=== PATIENT | male | born 1990 | race Caucasian/White ===

== ENCOUNTER 2020-10-05 13:34 | Emergency (ER) | payer OTHER ==
[2020-10-05 15:47] LABS: HEMOGLOBIN 15.9 gm/dl (14.0-17.5); RED BLOOD COUNT 5.22 M/UL (4.20-5.50); WHITE BLOOD COUNT 10.5 K/UL (4.5-11.0)
[2020-10-05 16:07] LABS: BUN/CREATININE RATIO 11 (0-10)
[2020-10-05] MEDS ORDERED: NORFLEX 100 MG100 MG PO (16:50)
[2020-10-05] MEDS ORDERED: IBUPROFEN600 MG PO (16:50)
[2020-10-05] MEDS ORDERED: MEDROL DOSEPAK 24 MG PO (16:50)
== END 2020-10-05 17:05 | disposition home or self-care (01) ==
LOC: ER1 13:34
PROVIDERS: Physician Assistant Medical
DX: S29.011A Strain of muscle and tendon of front wall of thorax, initial encounter (principal); F17.210 Nicotine dependence, cigarettes, uncomplicated; Z86.19 Personal history of other infectious and parasitic diseases; X58.XXXA Exposure to other specified factors, initial encounter; Y92.89 Other specified places as the place of occurrence of the external cause; Y99.0 Civilian activity done for income or pay
CPT/HCPCS: 71111; 80053; 83690; 85025; 96372; 99285; J1885

== ENCOUNTER 2020-11-16 19:22 | Emergency (ER) | payer OTHER ==
[~2020-11-16 19:22] MED LIST: IBUPROFEN600 MG PO; MEDROL DOSEPAK 24 MG PO; NORFLEX 100 MG100 MG PO
[2020-11-16 20:10] LABS: HEMOGLOBIN 14.7 gm/dl (14.0-17.5); RED BLOOD COUNT 4.99 M/UL (4.20-5.50); WHITE BLOOD COUNT 10.4 K/UL (4.5-11.0)
[2020-11-16 20:27] LABS: BUN/CREATININE RATIO 13 (0-10)
[2020-11-16] MEDS ORDERED: CYCLOBENZAPRINE10 MG PO (21:16)
== END 2020-11-16 23:02 | disposition home or self-care (01) ==
LOC: ER1 19:22
PROVIDERS: Physician Assistant
DX: S00.03XA Contusion of scalp, initial encounter (principal); S20.211A Contusion of right front wall of thorax, initial encounter; F17.210 Nicotine dependence, cigarettes, uncomplicated; V86.59XA Driver of other special all-terrain or other off-road motor vehicle injured in nontraffic accident, initial encounter; Y92.410 Unspecified street and highway as the place of occurrence of the external cause
CPT/HCPCS: 70450; 71260; 72125; 80053; 81001; 83690; 85025; 99284; Q9967

== ENCOUNTER 2021-04-09 11:02 | Emergency (ER) | payer OTHER ==
[~2021-04-09 11:02] MED LIST changes: +CYCLOBENZAPRINE10 MG PO
[2021-04-09] MEDS ORDERED: PROAIR HFA8.5 GM INH (14:27)
[2021-04-09] MEDS ORDERED: TESSALON PERLE100 MG PO (14:27)
== END 2021-04-09 14:39 | disposition home or self-care (01) ==
LOC: ER1 11:02
DX: U07.1 COVID-19 (principal); J40 Bronchitis, not specified as acute or chronic; F17.200 Nicotine dependence, unspecified, uncomplicated; Z86.19 Personal history of other infectious and parasitic diseases; G40.909 Epilepsy, unspecified, not intractable, without status epilepticus
CPT/HCPCS: 71045; 99285; U0002

== ENCOUNTER 2021-04-22 20:10 | Emergency (ER) | payer OTHER ==
[~2021-04-22 20:10] MED LIST changes: +PROAIR HFA8.5 GM INH; +TESSALON PERLE100 MG PO
[2021-04-22] MEDS ORDERED: IBUPROFEN800 MG PO (21:50)
== END 2021-04-22 21:59 | disposition home or self-care (01) ==
LOC: ER1 20:10
DX: S39.012A Strain of muscle, fascia and tendon of lower back, initial encounter (principal); R56.9 Unspecified convulsions; Z86.19 Personal history of other infectious and parasitic diseases; V49.40XA Driver injured in collision with unspecified motor vehicles in traffic accident, initial encounter; Y92.410 Unspecified street and highway as the place of occurrence of the external cause
CPT/HCPCS: 70450; 71045; 72125; 72128; 72131; 99284

== ENCOUNTER 2021-05-04 22:36 | Emergency (ER) | payer OTHER ==
[~2021-05-04 22:36] MED LIST changes: +IBUPROFEN800 MG PO
[2021-05-05 02:06] LABS: HEMOGLOBIN 14.1 gm/dl (14.0-17.5); RED BLOOD COUNT 5.03 M/UL (4.20-5.50); WHITE BLOOD COUNT 12.4 K/UL (4.5-11.0)
[2021-05-05 02:25] LABS: BUN/CREATININE RATIO 13 (0-10)
== END 2021-05-05 03:33 ==
LOC: ER1 22:36
PROVIDERS: Emergency Medicine
DX: S02.32XA Fracture of orbital floor, left side, initial encounter for closed fracture (principal); S02.842A Fracture of lateral orbital wall, left side, initial encounter for closed fracture; S05.12XA Contusion of eyeball and orbital tissues, left eye, initial encounter; F91.1 Conduct disorder, childhood-onset type; F19.10 Other psychoactive substance abuse, uncomplicated; Z23 Encounter for immunization; Y04.2XXA Assault by strike against or bumped into by another person, initial encounter
CPT/HCPCS: 70450; 70486; 71045; 80053; 80307; 81001; 83690; 83735; 85025; 90471; 90715; 96374; 96375; 99285; G0480; J0690; J2405; J7030

== ENCOUNTER 2021-12-26 08:58 | Emergency (ER) | payer OTHER ==
[2021-12-26] MEDS ORDERED: KEPPRA1000 MG PO (09:37)
== END 2021-12-26 09:45 | disposition home or self-care (01) ==
LOC: ER1 08:58
DX: G40.909 Epilepsy, unspecified, not intractable, without status epilepticus (principal)
CPT/HCPCS: 93005; 99284